=== PATIENT | female | born 1970 ===

== ENCOUNTER 2021-12-17 05:10 | Day surgery (SDC) | payer OTHER ==
[~2021-12-17 05:10] MED LIST: MESALAMINE800 MG PO
== END 2021-12-17 14:05 | disposition home or self-care (01) ==
LOC: CIR.AMB 05:10
PROVIDERS: ATTEND Orthopaedic Surgery
DX: M75.122 Complete rotator cuff tear or rupture of left shoulder, not specified as traumatic (principal); M75.22 Bicipital tendinitis, left shoulder; M24.112 Other articular cartilage disorders, left shoulder; Z20.822 Contact with and (suspected) exposure to COVID-19; Z88.8 Allergy status to other drugs, medicaments and biological substances; Z86.711 Personal history of pulmonary embolism; G43.909 Migraine, unspecified, not intractable, without status migrainosus